=== PATIENT | male | born 1975 | race Caucasian/White ===

== ENCOUNTER 2019-01-25 15:16 | Emergency (ER) | payer OTHER ==
[2019-01-25 15:28] VITALS: BP 165/93; PULSE 75; RESP 18; TEMP 97.9
[2019-01-25] MEDS ORDERED: ceFAZolin 1,000 MG VIAL (IM USE) IM STA (15:41)
--- NOTE | 2019-01-25 16:04 | XR ---
EXAMINATION TYPE: XR hand complete RT DATE OF EXAM: 01/25/2019 COMPARISON: None HISTORY: Glass at third metacarpal region TECHNIQUE: Three-view right hand FINDINGS: There is a triangular foreign body along the dorsum of the distal third metacarpal region. Overlying soft tissue swelling is present. No underlying osseous abnormality is evident. Joint spaces are preserved. IMPRESSION: 1. Radiopaque foreign body compatible with glass along the dorsum of the hand at the distal third me tacarpal region.
[2019-01-25] MEDS ORDERED: LIDOCAINE 1% INJ 10MG/ML (20 ML MDV) SQ STA (16:06)
[2019-01-25] MEDS ORDERED: CEPHALEXIN 500MG STARTER PACK 4 CAP BTL PO STA (16:58)
--- NOTE | 2019-01-25 16:58 | ED ---
General Adult HPI - General Chief complaint: Skin/Abscess/Foreign Body Stated complaint: Glass in hand-[facility] Time Seen by Provider: 01/25/19 15:29 Source: patient, RN notes reviewed, old records reviewed Mode of arrival: ambulatory Limitations: no limitations - History of Present Illness Initial comments: 43-year-old male patient presents ED chief complaint of piece of glass in right hand from a mirror. Patient states that this occurred last night. Patient states that he went to [facility] where were unable to remove the foreign body. Patient reports that they did prescribe her antibiotics over he has not taken any yet, and does report that they did update his tetanus. Systemic: Pt denies fatigue, fever/chills, rash. Pt denies weakness, night sweats, weight loss. Neuro: Pt denies headache, visual disturbances, syncope or pre-syncope. HEENT: Pt denies ocular discharge or irritation, otalgia, rhinorrhea, pharyngitis or notable lymphadenopathy. Cardiopulmonary: Pt denies chest pain, SOB, heart palpitations, dyspnea on exertion. Abdominal/GI: Pt denies abdominal pain, n/v/d. : Pt denies dysuria, burning w/ urination, frequency/urgency. Denies new onset urinary or bowel incontinence. MSK: Pt denies myalgia, loss of strength or function in extremities. Neuro: Pt denies new onset weakness, paresthesias. - Related Data Previous Rx's Medication Instructions Recorded Cephalexin [Keflex] 500 mg PO Q6HR 10 Days #40 cap 01/25/19 Allergies Allergy/AdvReac Type Severity Reaction Status Date / Time Penicillins Allergy Unknown Verified 01/25/19 15:28 Childhood Review of Systems ROS Statement: Those systems with pertinent positive or pertinent negative responses have been documented in the HPI. ROS Other: All systems not noted in ROS Statement are negative. Past Medical History Past Medical History: No Reported History History of Any Multi-Drug Resistant Organisms: None Reported Past Surgical History: Orthopedic Surgery Additional Past Surgical History / Comment(s): right knee, bilateral elbow Past Psychological History: Depression Smoking Status: Current every day smoker Past Alcohol Use History: None Reported Past Drug Use History: None Reported General Exam - General Exam Comments Initial Comments: Constitutional: NAD, AOX3, Pt has pleasant affect. HEENT: NC/AT, trachea midline, neck supple, no lymphadenopathy. Posterior pharynx non erythematous, without exudates. External ears appear normal, without discharge. Mucous membranes moist. Eyes PERRLA, EOM intact. There is no scleral icterus. No pallor noted. Cardiopulmonary: RRR, no murmurs, rubs or gallops, no JVD noted. Lungs CTAB in anterior and posterior muro. No peripheral edema. Abdominal exam: Abdomen soft and non-distended. Abdomen non-tender to palpation in all 4 quadrants. Bowel sounds active in LLQ. No hepatosplenomegaly. No ecchymosis Neuro: CN II-XII grossly intact. No nuchal rigidity. No raccon eyes, no zamora sign, no hemotympanum. No cervical spinal tenderness. MSK: No posterior calf tenderness bilaterally, homans sign negative bilaterally. Posterior tibialis and radial pulse +2 bilaterally. Sensation intact in upper and lower extremities. Full active ROM in upper and lower extremities, 5/5 stregnth. Derm: Foreign body palpated at medial aspect of third MCP joint on right hand. Approximately 0.5 cm laceration. Cleaned vigorously in ED. Removed by attending physician Dr. Corrigan. 0.5 cm laceration extension, loosely approximated with 1 simple interrupted suture. Piece of glass was removed in entirety, did not break. Full active ROM of digit before and after forign body removal. Sensation intact, capillary refill <2 seconds. Limitations: no limitations Course Vital Signs 01/25/19 15:24 Temperature 97.9 F Pulse Rate 75 Respiratory 18 Rate Blood Pressure 165/93 O2 Sat by Pulse 100 Oximetry Medical Decision Making - Medical Decision Making 43-year-old male patient presents ED chief complaint of piece of glass in right hand from a mirror. Patient states that this occurred last night. Patient states that he went to [facility] where were unable to remove the foreign body. Patient reports that they did prescribe her antibiotics over he has not taken any yet, and does report that they did update his tetanus. Pt VSS, afebrile. Plain film displayed foreign body. Physical exam displayed: Foreign body palpated at medial aspect of third MCP joint on right hand. Approximately 0.5 cm laceration. Cleaned vigorously in ED. Removed by attending physician Dr. Corrigan. 0.5 cm laceration extension, loosely approximated with 1 simple interrupted suture. Piece of glass was removed in entirety, did not break. Full active ROM of digit before and after forign body removal. Sensation intact, capillary refill <2 seconds. Pt was offered rpt plain film, declined. Pt admistered 1 dose of kefzol in ED, will be DC with keflex. Pt will f/u with PCP and will f/u with othopedic consult if any complication develop. Return precautions disucssed. Case discussed and pt seen by Dr. Corrigan. Disposition Clinical Impression: Soft tissues foreign body Disposition: HOME SELF-CARE Condition: Stable Instructions (If sedation given, give patient instructions): Soft Tissue Foreign Body (ED) Additional Instructions: Patient to adhere to previously discussed treatment plan and will take medication(s) as directed. Patient to follow up with PCP in 1-2 days. Patient to return to ED if symptoms do not improve. Take medications as directed. Follow up with primary care provider. Follow up with orthopedic consult symptoms worsen in any way. Please return for suture removal: Hand: 7-10 days Face: 5 days Chest/abdomen: 12-14 days Extremities: 7-10 days Scalp: 7 days Eyebrow: 5-7 days Foot/sole: 12-14 days Please monitor for signs and symptoms of infection including: redness, warmth, drainage, discharge. Please return to ED if these signs or symptoms occur, new signs or symptoms develop or if condition worsens in anyway. Prescriptions: Cephalexin [Keflex] 500 mg PO Q6HR 10 Days #40 cap Is patient prescribed a controlled substance at d/c from ED?: No Referrals: None,Stated [Primary Care Provider] - 1-2 days Hao Brewster DO [Medical Doctor] - 1-2 days [facility] [NON-STAFF] - 1-2 days
--- NOTE | 2019-01-28 05:06 | CDI ---
Dear Shekhar: Please do addendum clarification is the foreign body removed by incision. Thank you, Mariposa Dawn, Machine Technician. If you have any questions, please contact [employer] at [phone]. [place]
== END 2019-01-25 17:10 | disposition home or self-care (01) ==
LOC: EC 15:16
DX: S61.222A Laceration with foreign body of right middle finger without damage to nail, initial encounter (principal); F17.200 Nicotine dependence, unspecified, uncomplicated; Z88.0 Allergy status to penicillin; W45.8XXA Other foreign body or object entering through skin, initial encounter; W25.XXXA Contact with sharp glass, initial encounter; Y92.69 Other specified industrial and construction area as the place of occurrence of the external cause; Y99.0 Civilian activity done for income or pay
CPT/HCPCS: 99284; 12041; 96372; 73130; J0690; J2001